=== PATIENT | male | born 1955 | race African-American/Black ===

== ENCOUNTER 2018-07-23 01:48 | Emergency (ER) | payer OTHER ==
[~2018-07-23] VITALS: Ht 180.3 cm; Wt 104.3 kg
[2018-07-23] MEDS ORDERED: INSULIN REGULAR, HUMAN 100 UNIT/1 ML 3ML VIAL SQ ONE (02:15)
[2018-07-23] MEDS ORDERED: SODIUM CHLORIDE 0.9% 1000ML 1,000 ML IV SCH ×2 (02:15→03:15)
[2018-07-23 03:47] VITALS: BP 146/68
== END 2018-07-23 04:12 | disposition home or self-care (01) ==
LOC: FSED 01:48
DX: E11.65 Type 2 diabetes mellitus with hyperglycemia (principal); E78.00 Pure hypercholesterolemia, unspecified
CPT/HCPCS: 36415; 80053; 81003; 82948; 85025; 99283